=== PATIENT | male | born 1955 | race African-American/Black ===

== ENCOUNTER 2017-08-04 03:41 | Emergency (ER) | payer OTHER ==
[~2017-08-04] VITALS: Ht 165.1 cm; Wt 57.0 kg
[~2017-08-04 03:41] MED LIST: CYCL-36 PO; NAPR500 PO
[2017-08-04 03:44] VITALS: BP 116/83; PULSE 93; RESP 16; TEMP 97.9; O2SAT 97
[2017-08-04 03:57] VITALS: BP 150/83; PULSE 85; RESP 20; O2SAT 100
[2017-08-04 04:23] LABS: AUTOMATED NEUTROPHIL # 7.6 TH/MM3 (1.8-7.7); BASOPHIL # 0.1 TH/MM3 (0-0.2); BASOPHIL % 1.2 % (0.0-2.0); EOSINOPHIL % 0.1 % (0.0-4.0); HEMATOCRIT 45.4 % (39.0-51.0); HEMOGLOBIN 15.3 GM/DL (13.0-17.0); LYMPH % 7.7 % (9.0-44.0); LYMPHOCYTE # 0.7 TH/MM3 (1.0-4.8); MEAN CELL VOLUME 90.7 FL (80.0-100.0); MEAN CORPUSCULAR HEMOGLOBIN 30.6 PG (27.0-34.0); MEAN CORPUSCULAR HGB CONC 33.7 % (32.0-36.0); MEAN PLATELET VOLUME 7.3 FL (7.0-11.0); MONO % 5.8 % (0.0-8.0); MONOCYTE # 0.5 TH/MM3 (0-0.9); NEUT % 85.2 % (16.0-70.0); PLATELET COUNT 258 TH/MM3 (150-450); RED CELL DISTRIBUTION WIDTH 16.1 % (11.6-17.2); WHITE BLOOD COUNT 8.9 TH/MM3 (4.0-11.0)
[2017-08-04 04:36] LABS: ALBUMIN 3.6 GM/DL (3.4-5.0); ALT (GPT) 34 U/L (12-78); AST (GOT) 30 U/L (15-37); BICARBONATE 27.4 MEQ/L (21.0-32.0); BLOOD UREA NITROGEN 28 MG/DL (7-18); CALCIUM 8.4 MG/DL (8.5-10.1); CHLORIDE 104 MEQ/L (98-107); CREATININE 1.78 MG/DL (0.60-1.30); GLOMERULAR FILTRATION RATE 47 ML/MIN (>89); GLUCOSE,RANDOM 119 MG/DL (74-106); LIPASE 124 U/L (73-393); SODIUM (NA) 138 MEQ/L (136-145)
[2017-08-04] MEDS ORDERED: ONDANSETRON HCL 4 MG/2 ML VIAL IV PUSH ONE (04:45)
[2017-08-04] MEDS ORDERED: PANTOPRAZOLE SODIUM 40 MG VIAL IV PUSH ONE (04:45)
[2017-08-04 04:50] LABS: ALKALINE PHOSPHATASE 60 U/L (45-117); TOTAL BILIRUBIN ADULT 0.7 MG/DL (0.2-1.0); TROPONIN I LESS THAN 0.02 NG/ML (0.02-0.05)
[2017-08-04 04:56] LABS: BANDS 18 % (0-6); LYMPHOCYTES 8 % (9-44); MONOCYTES 3 % (0-8); NEUTROPHIL # MANUAL DIFF 7.9 TH/MM3 (1.8-7.7); POLYS (SEG NEUTROPHILS) 71 % (16-70)
--- NOTE | 2017-08-04 05:01 | RADRPT ---
EXAM DATE/TIME: 08/04/2017 04:10 [place] COMPARISON: No previous studies available for comparison. INDICATIONS : Chest pain. MEDICAL HISTORY : None. SURGICAL HISTORY : None. ENCOUNTER: Initial ACUITY: 1 day PAIN SCORE: 4/10 LOCATION: Left upper chest FINDINGS: The lungs are clear without infiltrate, nodule, or mass. There is no appreciable pleural effusion fo r technique. Heart and mediastinum are unremarkable. CONCLUSION: No acute cardiopulmonary disease. Cliff Tracey MD on August 04, 2017 at 4:59 Board Certified Radiologist. This report was verified electronically.
[2017-08-04] MEDS ORDERED: SODIUM CHLOR 0.9% 1000 ML INJ 1,000 ML IV ONE ×2 (05:45→09:00)
--- NOTE | 2017-08-04 05:47 | PD ---
HPI Chief Complaint: Chest Pain Time Seen by Provider: 03:58 Travel History International Travel<30 days: No Contact w/Intl Traveler<30days: No Traveled to known affect area: No History of Present Illness HPI Patient is a 62-year-old male coming in with left-sided chest pain after a day of vomiting and diarrhea patient has never had any cardiac history he reports he reports that the pain is left-sided constant and started after the excessive vomiting. Patient also reports having diarrhea. Patient did not take any medications no Tums or antacids to relieve the pain and he only has a history of high blood pressure. Denies diabetes denies radiation denies shortness of breath PFSH Past Medical History Medical History: Denies Significant Hx Diminished Hearing: No Tetanus Vaccination: < 5 Years Influenza Vaccination: No Past Surgical History Surgical History: No Previous Surgery Social History Alcohol Use: No Tobacco Use: No Substance Use: No Allergies-Medications (Allergen,Severity, Reaction): Coded Allergies: No Known Allergies (Verified Adverse Reaction, Unknown, 08/04/17) Reported Meds & Prescriptions Reported Meds & Active Scripts Active No Active Prescriptions or Reported Medications Review of Systems Except as stated in HPI: all other systems reviewed are Neg Cardiovascular: Positive: Chest Pain or Discomfort Gastrointestinal: Positive: Nausea, Vomiting, Diarrhea Physical Exam Narrative GENERAL: Patient is in no apparent distress vitals are within normal limits SKIN: Warm and dry. HEAD: Atraumatic. Normocephalic. EYES: Pupils equal and round. No scleral icterus. No injection or drainage. ENT: No nasal bleeding or discharge. Mucous membranes pink and moist. NECK: Trachea midline. No JVD. CARDIOVASCULAR: Regular rate and rhythm. RESPIRATORY: No accessory muscle use. Clear to auscultation. Breath sounds equal bilaterally. GASTROINTESTINAL: Abdomen soft, non-tender, nondistended. Hepatic and splenic margins not palpable. MUSCULOSKELETAL: Extremities without clubbing, cyanosis, or edema. No obvious deformities. NEUROLOGICAL: Awake and alert. No obvious cranial nerve deficits. Motor grossly within normal limits. Five out of 5 muscle strength in the arms and legs. Normal speech. PSYCHIATRIC: Appropriate mood and affect; insight and judgment normal. Data Data Last Documented VS Vital Signs Date Time Temp Pulse Resp B/P (MAP) Pulse Ox O2 Delivery O2 Flow Rate FiO2 08/04/17 09:49 08/04/17 08:48 80 17 100 Room Air Orders Orders Electrocardiogram (08/04/17 03:58) Complete Blood Count With Diff (08/04/17 03:58) Comprehensive Metabolic Panel (08/04/17 03:58) Ckmb (Isoenzyme) Profile (08/04/17 03:58) Troponin I (08/04/17 03:58) Lipase (08/04/17 03:58) Chest, Pa & Lat (08/04/17 03:58) Pantoprazole Inj (Protonix Inj) (08/04/17 04:45) Ondansetron Inj (Zofran Inj) (08/04/17 04:45) CKMB (08/04/17 04:02) CKMB% (08/04/17 04:02) Sodium Chlor 0.9% 1000 Ml Inj (Ns 1000 M (08/04/17 05:45) Troponin I (08/04/17 06:31) Electrocardiogram (08/04/17 ) Sodium Chlor 0.9% 1000 Ml Inj (Ns 1000 M (08/04/17 09:00) Ed Discharge Order (08/04/17 09:26) Labs Laboratory Tests Test 08/04/17 04:02 08/04/17 06:42 White Blood Count 8.9 TH/MM3 Red Blood Count 5.00 MIL/MM3 Hemoglobin 15.3 GM/DL Hematocrit 45.4 % Mean Corpuscular Volume 90.7 FL Mean Corpuscular Hemoglobin 30.6 PG Mean Corpuscular Hemoglobin Concent 33.7 % Red Cell Distribution Width 16.1 % Platelet Count 258 TH/MM3 Mean Platelet Volume 7.3 FL Neutrophils (%) (Auto) 85.2 % Lymphocytes (%) (Auto) 7.7 % Monocytes (%) (Auto) 5.8 % Eosinophils (%) (Auto) 0.1 % Basophils (%) (Auto) 1.2 % Neutrophils # (Auto) 7.6 TH/MM3 Lymphocytes # (Auto) 0.7 TH/MM3 Monocytes # (Auto) 0.5 TH/MM3 Eosinophils # (Auto) 0.0 TH/MM3 Basophils # (Auto) 0.1 TH/MM3 CBC Comment AUTO DIFF Differential Total Cells Counted 100 Neutrophils % (Manual) 71 % Band Neutrophils % 18 % Lymphocytes % 8 % Monocytes % 3 % Neutrophils # (Manual) 7.9 TH/MM3 Differential Comment FINAL DIFF MANUAL Platelet Estimate NORMAL Platelet Morphology Comment NORMAL Red Cell Morphology Comment NORMAL Blood Urea Nitrogen 28 MG/DL Creatinine 1.78 MG/DL Random Glucose 119 MG/DL Total Protein 8.0 GM/DL Albumin 3.6 GM/DL Calcium Level 8.4 MG/DL Alkaline Phosphatase 60 U/L Aspartate Amino Transf (AST/SGOT) 30 U/L Alanine Aminotransferase (ALT/SGPT) 34 U/L Total Bilirubin 0.7 MG/DL Sodium Level 138 MEQ/L Potassium Level 3.8 MEQ/L Chloride Level 104 MEQ/L Carbon Dioxide Level 27.4 MEQ/L Anion Gap 7 MEQ/L Estimat Glomerular Filtration Rate 47 ML/MIN Total Creatine Kinase 1514 U/L Creatine Kinase MB 5.2 NG/ML Creatine Kinase MB % 0.3 % Troponin I LESS THAN 0.02 NG/ML LESS THAN 0.02 NG/ML Lipase 124 U/L [facility] Medical Decision Making Medical Screen Exam Complete: Yes Emergency Medical Condition: Yes Differential Diagnosis GERD secondary to gastroenteritis viral versus ischemic chest pain versus pneumonia Narrative Course Patient is given IV fluid as well as Protonix and Zofran and he feels much better pain is gone only with antacids and Zofran. Troponin is negative EKG is normal sinus rhythm patient will be For repeat troponin 3 hour he does not want to be admitted to the chest pain center for a stress test which I offered to him Diagnosis Primary Impression: Gastroenteritis and colitis, viral Additional Impression: Chest pain Qualified Codes: R07.9 - Chest pain, unspecified Scripts No Active Prescriptions or Reported Meds Danie Fish MD Aug 04, 2017 05:47
[2017-08-04 06:35] VITALS: BP_SYST 111; BP_DIAS 32; BP_DIAS 62; PULSE 72; RESP 18; O2SAT 100
[2017-08-04 08:48] VITALS: BP 106/70; PULSE 80; RESP 17; O2SAT 100
--- NOTE | 2017-08-04 09:25 | PD ---
Physical Exam Date Seen by Provider: Aug 04, 2017 Time Seen by Provider: 07:00 Narrative This is a 62-year-old gentleman who was signed out to me by Dr. Fish at change of shift. The patient had presented with complaints of nausea vomiting diarrhea. He also reported some atypical chest pain. EKGs 23 hours apart were negative for acute process. Troponins 2 were negative for elevation. The patient was offered admission to the chest pain center however he refused at this time. Dr. Fish did not feel this was cardiac chest discomfort. The patient was noted to have a CPK of 1500. He was given [address] Fish and a second bag of fluid by this physician. Data Data Last Documented VS Vital Signs Date Time Temp Pulse Resp B/P (MAP) Pulse Ox O2 Delivery O2 Flow Rate FiO2 08/04/17 08:48 80 17 106/70 (82) 100 Room Air 08/04/17 03:44 97.9 Orders Orders Electrocardiogram (08/04/17 03:58) Complete Blood Count With Diff (08/04/17 03:58) Comprehensive Metabolic Panel (08/04/17 03:58) Ckmb (Isoenzyme) Profile (08/04/17 03:58) Troponin I (08/04/17 03:58) Lipase (08/04/17 03:58) Chest, Pa & Lat (08/04/17 03:58) Pantoprazole Inj (Protonix Inj) (08/04/17 04:45) Ondansetron Inj (Zofran Inj) (08/04/17 04:45) CKMB (08/04/17 04:02) CKMB% (08/04/17 04:02) Sodium Chlor 0.9% 1000 Ml Inj (Ns 1000 M (08/04/17 05:45) Troponin I (08/04/17 06:31) Electrocardiogram (08/04/17 ) Sodium Chlor 0.9% 1000 Ml Inj (Ns 1000 M (08/04/17 09:00) Labs Laboratory Tests Test 08/04/17 04:02 08/04/17 06:42 White Blood Count 8.9 TH/MM3 Red Blood Count 5.00 MIL/MM3 Hemoglobin 15.3 GM/DL Hematocrit 45.4 % Mean Corpuscular Volume 90.7 FL Mean Corpuscular Hemoglobin 30.6 PG Mean Corpuscular Hemoglobin Concent 33.7 % Red Cell Distribution Width 16.1 % Platelet Count 258 TH/MM3 Mean Platelet Volume 7.3 FL Neutrophils (%) (Auto) 85.2 % Lymphocytes (%) (Auto) 7.7 % Monocytes (%) (Auto) 5.8 % Eosinophils (%) (Auto) 0.1 % Basophils (%) (Auto) 1.2 % Neutrophils # (Auto) 7.6 TH/MM3 Lymphocytes # (Auto) 0.7 TH/MM3 Monocytes # (Auto) 0.5 TH/MM3 Eosinophils # (Auto) 0.0 TH/MM3 Basophils # (Auto) 0.1 TH/MM3 CBC Comment AUTO DIFF Differential Total Cells Counted 100 Neutrophils % (Manual) 71 % Band Neutrophils % 18 % Lymphocytes % 8 % Monocytes % 3 % Neutrophils # (Manual) 7.9 TH/MM3 Differential Comment FINAL DIFF MANUAL Platelet Estimate NORMAL Platelet Morphology Comment NORMAL Red Cell Morphology Comment NORMAL Blood Urea Nitrogen 28 MG/DL Creatinine 1.78 MG/DL Random Glucose 119 MG/DL Total Protein 8.0 GM/DL Albumin 3.6 GM/DL Calcium Level 8.4 MG/DL Alkaline Phosphatase 60 U/L Aspartate Amino Transf (AST/SGOT) 30 U/L Alanine Aminotransferase (ALT/SGPT) 34 U/L Total Bilirubin 0.7 MG/DL Sodium Level 138 MEQ/L Potassium Level 3.8 MEQ/L Chloride Level 104 MEQ/L Carbon Dioxide Level 27.4 MEQ/L Anion Gap 7 MEQ/L Estimat Glomerular Filtration Rate 47 ML/MIN Total Creatine Kinase 1514 U/L Creatine Kinase MB 5.2 NG/ML Creatine Kinase MB % 0.3 % Troponin I LESS THAN 0.02 NG/ML LESS THAN 0.02 NG/ML Lipase 124 U/L [facility] Medical Record Reviewed: Yes Supervised Visit with AUTUMN: No Narrative Course 62-year-old male presented with nausea vomiting diarrhea. Patient also had atypical chest pain. The patient's EKGs 2 and cardiac enzyme tripped/troponin were negative. The patient was offered admission to the chest pain center but declined. Since chest pain is very atypical. He's been given a second liter of fluid for his elevated CPK. I've informed him that he will need to drink plenty of fluids. He is instructed to return if he develops any worsening symptoms. He is also instructed to follow up with his primary care physician. Diagnosis Primary Impression: Gastroenteritis and colitis, viral Additional Impressions: Chest pain Dehydration elevated muscle enzymes in the blood declining admission Additional Instruction: Drink plenty of fluids. Follow up with her primary care physician. Call today for an appointment. Return if feeling worse. Scripts No Active Prescriptions or Reported Meds Disposition: 01 DISCHARGE HOME Condition: Stable Joseph Lynne MD Aug 04, 2017 09:25
--- NOTE | 2017-08-04 14:20 | EKG ---
Date Performed: 08/04/2017 Time Performed: 06:45:08 PTAGE: 62 years EKG: Sinus rhythm NORMAL ECG PREVIOUS TRACING : 08/04/2017 03.56 DOCTOR: Nicolas Baker Interpretating Date/Time 08/04/2017 14:19:45
--- NOTE | 2017-08-04 14:39 | EKG ---
Date Performed: 08/04/2017 Time Performed: 03:56:46 PTAGE: 62 years EKG: Sinus rhythm POSSIBLE LEFT ATRIAL ENLARGEMENT BORDERLINE ECG NO PREVIOUS TRACING DOCTOR: Nicolas Baker Interpretating Date/Time 08/04/2017 14:38:01
== END 2017-08-04 10:07 | disposition home or self-care (01) ==
LOC: NEPC 03:41
DX: A08.4 Viral intestinal infection, unspecified (principal); R07.9 Chest pain, unspecified; E86.0 Dehydration
CPT/HCPCS: 71020; 80053; 82550; 82552; 83690; 84484; 85007; 85027; 93005; 96361; 96374; 96375; 99285; C9113; J2405; J7030